=== PATIENT | male | born 1990 | race Caucasian/White ===

== ENCOUNTER 2019-04-22 19:44 | Emergency (ER) | payer MEDICAID, OTHER ==
[2019-04-22] MEDS ORDERED: DOXYcycline IV* 100 MG in NS 0.9% 250 ML* 250 ML IVPB ONE (20:25)
[2019-04-22] MEDS ORDERED: Dextran 70/Hypromellose Tears Eye Drops 15 ml BTL (for Artificials Tears) LEFT EYE PRN (20:27)
--- NOTE | 2019-04-22 20:29 | ED ---
Complex/Multi-Sys Presentation - HPI Summary HPI Summary: 29 year old M presenting to [facility] with a chief complaint of numbness on the left side of his face since yesterday around 1600/1700 (04/21/19). Patient describes the numbness as loss of felling and slight lack of movement that was following an onset of lyme disease symptoms that have been present for several weeks including fever, chills, body aches, night diaphoresis, neck pain , and rashes that started in his groin followed by 6 more rashes popping up within 2 days. Patient reports he got bit by a tick as he [place] [facility] about a [place] ago but that the rash was not where he suspects the tick bite is. Patient reports he has been on the Buhner protocol, a herbal supplement regimen to fight lyme disease, and thought his symptoms were being alleviated as his rashes and other symptoms went away with only the night sweats and neck pain remaining but then yesterday, 04/21/19, he noticed a lack of mobility on the left side of his face. Patient reports he tried to get on antibiotics at [facility]gent [facility] where the doctors suspected a possible stroke and sent him to the ED to get a CT Scan. Patient reports to have distorted taste as when he drinks water as it tastes like salt. No hx of lyme disease. Symptoms aggravated by nothing. Symptoms alleviated by nothing. - History Of Current Complaint Chief Complaint: EDNeurologicalDeficit Time Seen by Provider: 04/22/19 20:10 Hx Obtained From: Patient Onset/Duration: Lasting Days - 1 Timing: Constant Aggravating Factor(s): nothing Alleviating Factor(s): nothing Associated Signs And Symptoms: Positive: Fever, Diaphoresis, Other - body aches , night diaphoresis, neck pain, distorted taste, and rashes - Allergies/Home Medications Allergies/Adverse Reactions: Allergies Allergy/AdvReac Type Severity Reaction Status Date / Time No Known Allergies Allergy Verified 04/22/19 19:50 PMH/Surg Hx/FS Hx/Imm Hx Respiratory History: Reports: Other Respiratory Problems/Disorders - Spontaneous pneumothorax Sensory History: Denies: Hx Legally Blind, Hx Deafness Opthamlomology History: Denies: Hx Legally Blind EENT History: Denies: Hx Deafness Infectious Disease History: Yes Infectious Disease History: Denies: Traveled Outside the [place] in Last 30 Days - Social History Alcohol Use: None Hx Substance Use: Yes Substance Use Type: Reports: Marijuana, Other Substance Use Comment - Amount & Last Used: "opium poppy tincture" Hx Tobacco Use: Yes Smoking Status (MU): Heavy Every Day Tobacco Smoker Review of Systems Positive: Fever, Chills, Skin Diaphoresis, Other - body aches ENT: Other - distorted taste Musculoskeletal: Other - neck pain Positive: Rash All Other Systems Reviewed And Are Negative: Yes Physical Exam - Summary Physical Exam Summary: VITAL SIGNS: Reviewed. GENERAL: Patient is a well-developed and nourished MALE who is lying comfortable in the stretcher. Patient is not in any acute respiratory distress. 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 EARS: Hearing grossly intact. Ear canals and tympanic membranes are within normal limits. MOUTH: Oropharynx within normal limits. NECK: Supple, trachea is midline, no adenopathy, no JVD, no carotid bruit, no c- spine tenderness, neck with full ROM CHEST: Symmetric, no tenderness at palpation LUNGS: Clear to auscultation bilaterally. No wheezing or crackles. CVS: Regular rate and rhythm, S1 and S2 present, no murmurs or gallops appreciated. ABDOMEN: Soft, non-tender. No signs of distention. No rebound no guarding, and no masses palpated. Bowel sounds are normal. EXTREMITIES: FROM in all major joints, no edema, no cyanosis or clubbing. NEURO: Alert and oriented x 3. No acute neurological deficits. Speech is normal and follows commands. SKIN: Dry and warm Triage Information Reviewed: Yes Vital Signs On Initial Exam: Initial Vitals Temp Pulse Resp BP Pulse Ox 98.8 F 109 18 150/88 99 04/22/19 19:49 04/22/19 19:49 04/22/19 19:49 04/22/19 19:49 04/22/19 19:49 Vital Signs Reviewed: Yes Diagnostics - Vital Signs Vital Signs Temp Pulse Resp BP Pulse Ox 04/22/19 20:08 102 17 132/82 96 04/22/19 19:49 98.8 F 109 18 150/88 99 - Laboratory Lab Statement: Any lab studies that have been ordered have been reviewed, and results considered in the medical decision making process. Complex Multi-Symp Course/Dx Course Of Treatment: 29 year old M presenting to [facility] with a chief complaint numbness on the left side of his face since yesterday around 1600/1700 (04/21/19) . Patient describes the numbness as loss of felling and slight lack of movement that was following an onset of lyme disease symptoms that have been present for several weeks including fever, chills, body aches, night diaphoresis , neck pain, and rashes that started in his groin followed by 6 more rashes popping up within 2 days. Patient reports he got bit by a tick as he lives in [place] [facility] about a month. Patient reports he has been on the Buhner protocol, a herbal supplement regimen to fight lyme disease, and thought his symptoms were being alleviated as his rashes and other symptoms went away with only the night sweats and neck pain remaining but then he yesterday the he noticed a lack of mobility on the left side of his face. Patient reports to have distorted taste as when he drinks water it tastes like salt. No hx of lyme disease. 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 Patient was given Doxycycline Hyclate 100 mg in Sodium Chloride 250 mls/hr in the ED. Physician discussed discharge with patient which patient agrees with. Patient will be discharged. - Diagnoses Provider Diagnoses: Conway palsy, Lyme disease Discharge - Sign-Out/Discharge Documenting (check all that apply): Patient Departure - discharge Patient Received Moderate/Deep Sedation with Procedure: No - Discharge Plan Condition: Stable Disposition: HOME Prescriptions: DOXYcycline CAP(*) [DOXYcycline 100MG CAP(*)] 100 mg PO BID #42 cap Nicotine PATCH 14 MG/24 HR* 14 mg TRANSDERM DAILY #7 patch Patient Education Materials: Lyme Disease (ED), Conway Palsy (ED) Referrals: [facility] PHYSICIAN REFERRAL [Outside] - 3 Days Additional Instructions: Follow up with primary care provider within 3 days. PLEASE RETURN TO THE ED IMMEDIATELY FOR WORSENING OR CONCERNING SYMPTOMS. - Attestation Statements Document Initiated by Scribe: Yes Documenting Scribe: Rosalinda Suazo Provider For Whom Hieuibe is Documenting (Include Credential): Ruth Gaspar MD Scribe Attestation: Rosalinda Morin, scribed for Ruth Gaspar MD on 04/23/19 at 0143. Status of Scribe Document: Ready
[2019-04-22 21:45] VITALS: BP 124/7
== END 2019-04-22 21:44 | disposition home or self-care (01) ==
LOC: ED 19:44
DX: G51.0 Bell's palsy (principal); A69.20 Lyme disease, unspecified; F17.210 Nicotine dependence, cigarettes, uncomplicated
CPT/HCPCS: 36415; 86617; 86618; 96365; 99282